=== PATIENT | female | born 1970 | race Asian ===

== ENCOUNTER 2017-09-01 19:58 | Emergency (ER) | payer OTHER ==
[~2017-09-01] VITALS: Ht 167.6 cm; Wt 122.5 kg
[2017-09-01] MEDS ORDERED: PHEN50CH2 PO (20:18)
[2017-09-01] MEDS ORDERED: HYDROCHLOROT12.5 M1 PO (20:18)
[2017-09-01 20:44] LABS: PLATELET COUNT 274 K/uL (152-353)
[2017-09-01 20:48] LABS: POTASSIUM 3.9 mmol/L (3.6-5.2)
[2017-09-01 21:02] LABS: PARTIAL THROMBOPLASTIN TIME 23.1 SECONDS (24.5-33.6)
[2017-09-01 22:09] VITALS: BP 155/80; TEMP 98
== END 2017-09-01 22:10 | disposition home or self-care (01) ==
LOC: ED 19:58
DX: R56.9 Unspecified convulsions (principal); Z79.899 Other long term (current) drug therapy; I45.81 Long QT syndrome
CPT/HCPCS: 36415; 80053; 80185; 82550; 84484; 85027; 85610; 85730; 99283